=== PATIENT | male | born 1985 | race Two or more races ===

== ENCOUNTER 2017-06-18 14:25 | Emergency (ER) | payer MEDICARE, MEDICAID ==
[~2017-06-18] VITALS: Ht 172.7 cm; Wt 81.6 kg
[2017-06-18 14:58] VITALS: BP 125/88
[2017-06-18] MEDS ORDERED: KETOROLAC TROMETHAMINE INJ 60 MG/2 ML VIAL IM ONE (16:00)
--- NOTE | 2017-06-18 16:09 | NUR ---
U/S TECH AT BEDSIDE FOR RLE DUPLEX ULTRASOUND.
[2017-06-18] MEDS ORDERED: KETOROLAC TROMETHAMINE INJ 30 MG/ML VIAL ONE (16:25)
== END 2017-06-18 20:36 | disposition home or self-care (01) ==
LOC: ER 14:34
DX: M79.604 Pain in right leg (principal)
CPT/HCPCS: 73610; 93971; 96372; 99284; A4606; J1885; Z7610

== ENCOUNTER 2018-05-26 10:50 | Emergency (ER) | payer MEDICARE, OTHER ==
[~2018-05-26] VITALS: Ht 172.7 cm; Wt 86.8 kg
[2018-05-26] MEDS ORDERED: ONDANSETRON HCL/PF 4 MG/2 ML VIAL IVP ONE (11:30)
[2018-05-26] MEDS ORDERED: FAMOTIDINE/PF INJ 20 MG/2 ML VIAL IV ONE ×2 (11:30→11:44)
[2018-05-26] MEDS ORDERED: IV NS 0.9% 1,000 ML BAG IV ONE (11:30)
[2018-05-26 11:37] LABS: BASOPHILS # (AUTO) 0.1 /CMM (0.0-0.2); BASOPHILS % (AUTO) 1.2 % (0.0-2.0); EOSINOPHILS % (AUTO) 0.5 % (0.0-6.0); HEMATOCRIT 51 % (39-51); HEMOGLOBIN 16.8 g/dL (13.5-17.5); LYMPHOCYTES # (AUTO) 1.3 /CMM (0.8-4.8); LYMPHOCYTES % (AUTO) 27.2 % (20.0-44.0); MEAN CORPUSCULAR HGB CONC 33 g/dl (31.0-36.0); MEAN CORPUSCULAR VOLUME 96 fL (80-96); MONOCYTES # (AUTO) 0.4 /CMM (0.1-1.30); MONOCYTES % (AUTO) 7.7 % (2.0-12.0); NEUTROPHILS % (AUTO) 63.4 % (43.0-81.0); PLATELET COUNT (AUTO) 289 /CMM (150-450); RED BLOOD CELL COUNT(AUTO) 5.28 MIL/uL (4.5-6.0); WHITE BLOOD COUNT (AUTO) 4.8 K/uL (4.3-11.0)
[2018-05-26 11:40] LABS: APPEARANCE,URINE Clear (CLEAR); BILIRUBIN,URINE Negative (NEGATIVE); BLOOD, URINE Negative Ery/uL (NEGATIVE); COLOR,URINE Yellow (YELLOW); KETONES,URINE Negative (NEGATIVE); LEUKOCYTE ESTERASE ,URINE Negative (NEGATIVE); NITRITE, URINE Negative (NEGATIVE); PH,URINE 6.5 (5.0-8.0); PROTEIN,URINE Negative (NEGATIVE); UGLUCOSE Negative (NEGATIVE); UROBILINOGEN,URINE 0.2 EU/dL (0.2)
[2018-05-26] MEDS ORDERED: ONDANSETRON HCL/PF 4 MG/2 ML VIAL ONE (11:44)
[2018-05-26 11:46] LABS: CALCIUM, SERUM 9.8 mg/dL (8.5-10.1); CREATININE 1.2 mg/dL (0.6-1.3); POTASSIUM 4.7 mmol/L (3.5-5.1)
[2018-05-26 11:52] LABS: ALBUMIN 5.2 g/dL (3.4-5.0); BILIRUBIN,DIRECT 0.2 mg/dL (0.0-0.2); BILIRUBIN,TOTAL 1.6 mg/dL (0.2-1.0); TOTAL PROTEIN, SERUM 8.5 g/dL (6.4-8.2)
[2018-05-26] MEDS ORDERED: IOHEXOL-300 100 ML VIAL IV ONE (13:01)
[2018-05-26] MEDS ORDERED: CT SWABBABLE VALVE TRANS SET 1 EA INFUS.SET MC ONE (13:01)
[2018-05-26] MEDS ORDERED: IV NS 0.9% 250 ML IV ONE (13:01)
[2018-05-26 14:29] VITALS: BP 128/80
--- NOTE | 2018-05-26 14:30 | NUR ---
PT BROUGHT BY SELF FOR 1 DQY NAUSEA AND DIARRHEA \NOW WITH RLQ ABDOMINAL PAIN PT GIVEN ALL MEDICATIONS ORDERED AND DISCHARGED HOME WITH FRIEND. PT WALKS WITH STEADU GAIT AND PIV REMOVED WITH TIP INTACT FROM LAC. PT GIVEN LABS, CT , AND XRAY REPORTS
== END 2018-05-26 14:30 | disposition home or self-care (01) ==
LOC: ER 10:51
DX: K59.00 Constipation, unspecified (principal); I88.0 Nonspecific mesenteric lymphadenitis; J45.909 Unspecified asthma, uncomplicated; Z98.890 Other specified postprocedural states
CPT/HCPCS: 36415; 74177; 80048; 80076; 81001; 83690; 85025; 96361; 96374; 96375; 99285; J2405; J3490; J7030; J7050; Q9967; 81000-TC; A4606; Z7610

== ENCOUNTER 2018-07-17 21:32 | Emergency (ER) | payer MEDICARE, MEDICAID ==
[~2018-07-17] VITALS: Ht 172.7 cm; Wt 85.7 kg
[2018-07-17 22:10] VITALS: BP 112/77
--- NOTE | 2018-07-17 22:10 | NUR ---
Pt walked in for cough with congestion, states "I have been having lung problems." Pt is A. O/4, moves all extremities without difficulty, breathing without difficulty on RA.
--- NOTE | 2018-07-17 22:17 | NUR ---
pt taken to radiology for CXR via w/c.
== END 2018-07-17 23:00 | disposition home or self-care (01) ==
LOC: ER 21:37
DX: J06.9 Acute upper respiratory infection, unspecified (principal); J45.909 Unspecified asthma, uncomplicated; Z90.49 Acquired absence of other specified parts of digestive tract
CPT/HCPCS: 71045-TC; A4606; Z7610

== ENCOUNTER 2022-02-24 11:10 | Emergency (ER) | payer MEDICARE, OTHER ==
[~2022-02-24] VITALS: Ht 172.7 cm; Wt 84.8 kg
--- NOTE | 2022-02-24 11:20 | NUR ---
THE PATIENT BIBS FOR C/O WOKE UP W/ SHARP L SIDED CHEST PAIN NON RADIATING AT 0930. RATES PAIN 7/10. IN ROOM AIR AND DENIES SOB. RESPIRATION REGULAR AND UNLABORED. THE PATIENT IS ATTACHED TO THE MONITOR. WILL CONTINUE TO MONITOR THE PATIENT.
--- NOTE | 2022-02-24 11:31 | NUR ---
IV LINE IS ESTABLISHED, BLOOD SPECIMEN COLLECTED AND SENT TO THE LAB. THE LINE IS SALINE LOCKED.
--- NOTE | 2022-02-24 11:38 | NUR ---
X-RAY TECH AT THE BEDSIDE
[2022-02-24 11:40] LABS: BASOPHILS % (AUTO) 0.6 % (0.0-2.0); EOSINOPHILS % (AUTO) 1.8 % (0.0-6.0); HEMATOCRIT 46 % (39-51); HEMOGLOBIN 16.3 g/dL (13.5-17.5); LYMPHOCYTES # (AUTO) 1.4 K/uL (0.8-4.8); LYMPHOCYTES % (AUTO) 29.9 % (20.0-44.0); MEAN CORPUSCULAR HGB CONC 35 g/dl (31.0-36.0); MEAN CORPUSCULAR VOLUME 94 fL (80-96); MONOCYTES # (AUTO) 0.5 K/uL (0.1-1.30); MONOCYTES % (AUTO) 9.8 % (2.0-12.0); NEUTROPHILS # (AUTO) 2.8 K/uL (1.8-8.9); NEUTROPHILS % (AUTO) 57.9 % (43.0-81.0); PLATELET COUNT (AUTO) 238 K/uL (150-450); RED BLOOD CELL COUNT(AUTO) 4.89 MIL/uL (4.5-6.0); WHITE BLOOD COUNT (AUTO) 4.8 K/uL (4.3-11.0)
--- NOTE | 2022-02-24 11:48 | NUR ---
URINE COLLECTED AND SENT TO THE LAB
[2022-02-24 11:51] LABS: CARBON DIOXIDE 25 mmol/L (21-32); CHLORIDE 103 mmol/L (98-107); GLUCOSE 102 mg/dL (74-106); POTASSIUM 4.2 mmol/L (3.5-5.1); SODIUM SERUM 136 mmol/L (136-145); UREA NITROGEN, BLOOD 17 mg/dL (7-18)
[2022-02-24] MEDS ORDERED: IBUPROFEN 600 MG TABLET ONE (12:28)
[2022-02-24] MEDS: IBUPROFEN 600 MG TABLET PO ONE (12:30)
[2022-02-24] MEDS ORDERED: IBUP-1955 PO (14:36)
[2022-02-24 14:45] VITALS: BP 113/74
--- NOTE | 2022-02-24 14:45 | NUR ---
IV removed. Catheter intact and site benign. Pressure and 4x4 applied to site. No bleeding noted.Patient discharged to home in stable condition. Written and verbal after care instructions given. Patient verbalizes understanding of instruction.
== END 2022-02-24 14:46 | disposition home or self-care (01) ==
LOC: ER 11:22
DX: R07.89 Other chest pain (principal); J45.909 Unspecified asthma, uncomplicated; Z90.49 Acquired absence of other specified parts of digestive tract
CPT/HCPCS: 36415; 71045-TC; 80048-TC; 84484-TC; 85025-TC

== ENCOUNTER 2025-05-19 18:51 | Emergency (ER) | payer BC, MEDICARE, OTHER ==
[~2025-05-19] VITALS: Ht 172.7 cm; Wt 81.2 kg
[~2025-05-19 18:51] MED LIST: IBUP-1955 PO
[2025-05-19 19:38] LABS: APPEARANCE,URINE CLEAR (CLEAR); BLOOD, URINE Trace-intact Ery/uL (NEGATIVE); LEUKOCYTE ESTERASE ,URINE Negative (NEGATIVE); NITRITE, URINE NEGATIVE (NEGATIVE); UGLUCOSE Negative (NEGATIVE)
[2025-05-19 19:45] LABS: ADD URINE CULTURE NO; SQUAMOUS EPITHELIAL CELL,UR None Seen /HPF (None Seen)
[2025-05-19 19:57] VITALS: TEMP 98.3
[2025-05-19] MEDS ORDERED: CIPR500T5 PO (20:04)
[2025-05-19] MEDS ORDERED: KETOROLAC TROMETHAMINE 15 MG/ML VIAL ONE (20:05)
[2025-05-19] MEDS ORDERED: ACETAMINOPHEN 325 MG TABLET ONE (20:05)
[2025-05-19] MEDS: KETOROLAC TROMETHAMINE 15 MG/ML VIAL IM ONE (20:10)
[2025-05-19] MEDS: ACETAMINOPHEN 325 MG TABLET PO ONE (20:11)
[2025-05-19 20:20] VITALS: BP 118/75; O2SAT 99
== END 2025-05-19 20:21 | disposition home or self-care (01) ==
LOC: ER 18:55
DX: R30.0 Dysuria (principal); R35.0 Frequency of micturition; R10.8A3 Suprapubic tenderness; J45.909 Unspecified asthma, uncomplicated; Z79.1 Long term (current) use of non-steroidal anti-inflammatories (NSAID); Z87.01 Personal history of pneumonia (recurrent)
CPT/HCPCS: 99283; 96372; 81001; J1885